=== PATIENT | female | born 1960 | race American Indian/Alaskan Native ===

== ENCOUNTER 2018-05-14 11:04 | Day surgery (SDC) | payer BC, OTHER ==
[~2018-05-14] VITALS: Ht 157.5 cm; Wt 74.4 kg
[~2018-05-14 11:04] MED LIST: ALBUTEROL SULF8.5 GM INH; ALLEGRA180 MG PO; ANTIVERT25 MG PO; ASPIRIN EC81 MG PO; CALCIUM500 MG PO; CLARITIN10 M2 PO; CRESTOR10 MG PO; DETROL LA4 MG PO; EPIPEN 2-P0.3 MG/0.3 IM; ESTRADIOL1 MG PO; FLONASE2 SPRAY NS; JANUVIA100 MG PO; LANTUS100 UNITS/ SUB-Q; LEVOTHYROXINE50 MCG PO; LISINOPRIL2.5 MG PO; MAG-OXIDE400 MG PO; METFORMIN HCL1000 MG PO; NAPROXEN500 MG PO; NEURONTIN100 MG PO; PREVACID30 MG PO; PV NEURO VITE1 EACH PO; VITAMIN D3400 UNI1 PO
--- NOTE | 2018-05-14 14:21 | NUR ---
05/14/18 1421 Ava Richards 1416-PATIENT ARRIVED TO PACU ON 2L NC O2 SAT 100% PATIENT REACTIVE TO VOICE DROWSY DENIES PAIN OR NAUSEA. ABDOMEN SOFT. LAYING LEFT LATERAL. GLUCOSE CHECK 89
--- NOTE | 2018-05-15 08:49 | OR ---
[facility] [address], [place] [address] Signed DATE OF OPERATION: 05/14/2018 SURGEON: Mahnaz Carlton MD PREOPERATIVE DIAGNOSES: 1. Episodic rectal bleeding. 2. History of sigmoid resection for diverticular disease in 2010. POSTOPERATIVE DIAGNOSES: 1. Scattered diverticula of remaining colon. No evidence of anastomotic abnormality including stricture. 2. No active proctitis or obvious hemorrhoidal changes. PROCEDURE: Total colonoscopy to cecum. ANESTHESIA: Intravenous sedation, fentanyl 100 mcg, Versed 5 mg. INDICATION: This 57-year-old [place] woman has complaints of rectal bleeding. She has last had bleeding in November. Blood filled the toilet bowl upon defecation. She had no pain with defecation. She has undergone sigmoid resection for diverticular disease by me in 2010. She has some evidence of episodic abdominal pain as well. She is admitted at this time to undergo colonoscopy to better characterize her problem, understanding the risks of bleeding, infection, and perforation. FINDINGS: The prep was excellent. Complete colonoscopy was undertaken of the cecum. There were few scattered diverticula in the remaining colon. The rectum was normal. The anastomosis was widely patent. There was no sign of active bleeding. No sign of proctitis or obvious hemorrhoidal changes. DESCRIPTION OF PROCEDURE: The patient was brought to the endoscopy suite and placed in lateral decubitus position given intravenous sedation to the point of slurred speech and nystagmus. Digital rectal examination was normal. An Olympus video colonoscope was passed in the rectum and manipulated throughout the colon ultimately intubating the cecum. The ileocecal valve and appendiceal orifice were Electronically Signed By: MAHNAZ CARLTON MD 05/15/18 0849 PATIENT NAME: LAYNE DIAZ OPERATIVE REPORT DATE OF : 60 REPORT #: [id number] PHYSICIAN: MAHNAZ CARLTON MD PCP: ZACH SOUZA MD REPORT IS CONFIDENTIAL AND NOT TO BE RELEASED WITHOUT AUTHORIZATION [facility] [address], [place] [address] Signed normal. Scope was withdrawn from that point. Examination throughout showed no sign of abnormality other than a few scattered diverticula throughout the colon. The coloproctostomy (anastomosis) was widely patent without sign of pathologic abnormality. The rectum was normal. Retroflexed view was undertaken showing no active bleeding or obvious colitis. No sign of significant hemorrhoidal change at this time. Scope was removed and the patient was taken to the recovery room in good condition. CONCLUDING DIAGNOSIS: Uncertain etiology of bleeding probably hemorrhoidal, now passed. Recommend high-fiber diet or Citrucel 1 tablespoon daily. She will call if bleeding recurs. MD BOBBY Stephens/HERNANDEZL /[id number] cc: Zach Souza MD Copies: ZACH SOUZA MD ~ Electronically Signed By: MAHNAZ CARLTON MD 05/15/18 0849 PATIENT NAME: LAYNE DIAZ OPERATIVE REPORT DATE OF : 60 REPORT #: [id number] PHYSICIAN: MAHNAZ CARLTON MD PCP: ZACH SOUZA MD REPORT IS CONFIDENTIAL AND NOT TO BE RELEASED WITHOUT AUTHORIZATION
== END 2018-05-14 15:05 | disposition home or self-care (01) ==
LOC: OPS 11:04 → DS 12:00 → OPS 15:05
PROVIDERS: Surgery
PROC: 0DJD8ZZ Inspection of Lower Intestinal Tract, Via Natural or Artificial Opening Endoscopic (ICD-10-PCS; principal; 2018-05-14 12:00)
DX: K62.5 Hemorrhage of anus and rectum (principal); K57.30 Diverticulosis of large intestine without perforation or abscess without bleeding; E11.9 Type 2 diabetes mellitus without complications; E03.9 Hypothyroidism, unspecified; J45.909 Unspecified asthma, uncomplicated; K21.9 Gastro-esophageal reflux disease without esophagitis; E66.3 Overweight; Z90.49 Acquired absence of other specified parts of digestive tract; Z88.8 Allergy status to other drugs, medicaments and biological substances; Z88.0 Allergy status to penicillin; Z88.5 Allergy status to narcotic agent; Z91.041 Radiographic dye allergy status; Z68.30 Body mass index [BMI] 30.0-30.9, adult
CPT/HCPCS: 99153; G0500; J2250; J3010; J7120

== ENCOUNTER 2020-12-31 07:35 | Day surgery (SDC) | payer BC, OTHER ==
[~2020-12-31] VITALS: Ht 157.5 cm; Wt 76.2 kg
--- NOTE | 2020-12-31 10:15 | NUR ---
12/31/20 1015 Barbra Crow 1012 PATIENT ARRIVES TO PACU RESTING WITH EYES CLOSED. ANSWERS QUESTIONS APPROPRIATELY WITH VERBAL STIMULI. RESP EVEN AND UNLABORED,OXYGEN OFF, ROOM AIR SATS >95%. DENIES PAIN OR NAUSEA.
--- NOTE | 2021-01-01 11:49 | OR ---
[facility] [address], [place] [address] Signed DATE OF OPERATION: 12/31/2020 SURGEON: Mahnaz Carlton MD PREOPERATIVE DIAGNOSES: 1. Abdominal bloating, fullness, longstanding gastroesophageal reflux history. 2. Diabetes mellitus. 3. History of diverticular disease, requiring resection. POSTOPERATIVE DIAGNOSES: 1. Upper endoscopy showing normal esophagus, mild gastritis, no sign of ulceration or neoplasm. No hiatal hernia. 2. Normal colon to cecum, widely patent colorectal anastomosis. PROCEDURES: 1. Esophagogastroduodenoscopy with biopsy. 2. Total colonoscopy to cecum with biopsy of cecum and rectum. ANESTHESIA: Intravenous sedation, fentanyl 150 mcg and Versed 5 mg. INDICATION: This 60-year-old woman is a patient of Dr. Ryan, [facility]. She is known to me from the past having undergone sigmoid resection for diverticular disease. She is seen recently with complaints of abdominal bloating and fullness and so on. She does not have typical biliary symptoms of epigastric right subcostal pain. Her blood sugars have been somewhat poorly controlled in recent times as well. Clinical suspicion remains high for possible biliary disease, a recent ct scan confirms gallstones. She has also had lower abdominal pain, suggestive of recurrent diverticular disease and upper abdominal pain in a bandlike configuration, which is uncertain etiology. Most dominantly, she has vague abdominal bloating and fullness. She is admitted at this time to undergo upper endoscopy and colonoscopy to better characterize the problem, I remain highly suspect biliary source for symptoms. FINDINGS: Upper endoscopy showed a normal esophagus. This flap valve was good. The stomach had mild inflammation, but not much and no ulceration. CLOtest was negative indicating no evidence of H. pylori. The duodenum was normal. Colonoscopy showed an adequate prep. Complete colonoscopy was undertaken of the cecum. Electronically Signed By: MAHNAZ CARLTON MD 01/01/21 1149 PATIENT NAME: LAYNE DIAZ OPERATIVE REPORT DATE OF : 60 REPORT #: [id number] PHYSICIAN: MAHNAZ CARLTON MD PCP: MIGDALIA RYAN MD REPORT IS CONFIDENTIAL AND NOT TO BE RELEASED WITHOUT AUTHORIZATION [facility] [address], [place] [address] Signed There were no gross findings of note. The anastomosis was widely patent. Biopsies were taken of the cecum and rectum to assess for occult inflammation. DESCRIPTION OF PROCEDURE: The patient was brought to the endoscopy suite, given topical hypopharyngeal lidocaine anesthetic spray. In the lateral decubitus position with full cardiopulmonary monitoring. A bite block was placed and she was given intravenous sedation to the point of slurred speech and nystagmus. The Olympus video upper endoscope was passed by hypopharynx, vocal cords appeared normal. Scope was easily passed in the esophagus throughout its length, it was entirely normal. Scope was passed to the stomach, which was insufflated with air, there was no evidence of fluid retention or other problem, there was no bile in the stomach, rugal folds were normal, pylorus was normal. Scope was passed through into the duodenum, which was normal; biopsies were taken of the 2nd bulbar portions to assess for celiac disease and other occult inflammation. The scope was withdrawn. A biopsy was then taken of the antrum for both ALBERTO and pathologic testing. Notably, there was a fine reticular appearance of mild chronic gastritis. Proximal evaluation on retroflexed view showed a reasonably good flap valve actually. The scope was withdrawn to the distal esophagus and biopsies were obtained there. The mucosa was normal. Scope was further withdrawn. There were no other findings. Plans were then made for colonoscopy. Additional sedation was given and digital rectal examination was performed, which was normal. An Olympus video colonoscope was passed in the rectum and manipulated throughout the colon. The prep was adequate, but not great by any means. There was no solid stool. Fair amount of irrigation was required. Scope was ultimately advanced to the cecum. The ileocecal valve and appendiceal orifice were normal. Scope was manipulated to allow for biopsy of the cecum. Withdrawal of scope showed no sign of abnormality throughout the entire colon. The anastomosis which was under site and configuration was widely patent. Biopsies were then taken of the rectum, but appeared normal. The scope was removed. The patient was taken to the recovery room in good condition. Notably, she did have internal hemorrhoidal changes. CONCLUDING DIAGNOSIS: No findings likely to account for her current symptoms. I strongly suspect a biliary source to her problem. A Ct scan has already confirmed gallstones. I have scheduled her for lap omega, possible open, this coming Sunday-- barring significant findings on this endoscopic evaluation. We Should continue with the opertive plan on that bais. PLAN: She has already been scheduled for lap omega, possible open procedure this coming Sunday and since there were no findings to account for her symptoms of upper abdominal pain, we will procedure with lap omega. Electronically Signed By: MAHNAZ CARLTON MD 01/01/21 1149 PATIENT NAME: LAYNE DIAZ OPERATIVE REPORT DATE OF : 60 REPORT #: [id number] PHYSICIAN: MAHNAZ CARLTON MD PCP: MIGDALIA RYAN MD REPORT IS CONFIDENTIAL AND NOT TO BE RELEASED WITHOUT AUTHORIZATION [facility] [address] [place] [address] Signed MD BOBBY Stephens/TOMER /[id number] cc: Migdalia Ryan MD Copies: MIGDALIA RYAN MD ~ Electronically Signed By: MAHNAZ CARLTON MD 01/01/21 1149 PATIENT NAME: LAYNE DIAZ OPERATIVE REPORT DATE OF : 60 REPORT #: [id number] PHYSICIAN: MAHNAZ CARLTON MD PCP: MIGDALIA RYAN MD REPORT IS CONFIDENTIAL AND NOT TO BE RELEASED WITHOUT AUTHORIZATION
--- NOTE | 2021-01-03 21:44 | PATH ---
[facility] [address] [place], [place] [address] Signed SPECIMEN(S): A DUODENAL BIOPSY SPECIMEN(S): B ANTRUM BIOPSY SPECIMEN(S): C ESOPHAGEAL BIOPSY SPECIMEN(S): D RECTUM SPECIMEN(S): E CECUM COLON BIOPSY SPECIMEN SOURCE: A. DUODENAL BIOPSY B. ANTRUM BIOPSY C. ESOPHAGEAL BIOPSY D. RECTUM E. CECUM COLON BIOPSY CLINICAL HISTORY: Colonoscopy/EGD. C/o N/V and chronic diarrhea. History of diverticular disease. DX: Mild gastritis. MICROSCOPIC DESCRIPTION: Histologic sections of all submitted blocks are examined by light microscopy. These findings, together with the gross examination, support the pathologic diagnosis. Regarding specimen B: Focal pancreatic acinar metaplasia is present, however no evidence of atrophic gastritis including atrophy, gland destruction, or full-thickeness lymphoplasmacytic infiltrate is seen. An H. pylori immunohistochemical stain (with appropriately staining controls) is negative for Helicobacter organisms. NAL:cml FINAL PATHOLOGIC DIAGNOSIS: A. Duodenum, biopsy: - Duodenal mucosa with mild Sun's gland hyperplasia. - Negative for increased intraepithelial lymphocytes or villous blunting. - Negative for dysplasia or malignancy. B. Antrum, biopsy: - Antral mucosa with chronic, inactive gastritis and focal pancreatic acinar metaplasia. - Negative for Helicobacter organisms (HE and IHC). - Negative for atrophy, dysplasia, or malignancy. C. Esophagus, biopsy: - Squamous mucosa with reactive changes and minimal chronic inflammation, consistent with reflux esophagitis. - Negative for intestinal metaplasia, dysplasia, or malignancy. PATIENT NAME: LAYNE DIAZ PATHOLOGY DATE OF : 60 REPORT #: [id number] PHYSICIAN: KENNETH DAHL PCP: MIGDALIA SINGH MD REPORT IS CONFIDENTIAL AND NOT TO BE RELEASED WITHOUT AUTHORIZATION [facility] [address], [place] [address] Signed D. Rectum, biopsy: - Rectal mucosa with no histopathologic abnormality. - Negative for active or chronic proctitis. - Negative for dysplasia or malignancy. E. Colon, cecum, biopsy: - Colonic mucosa with no histopathologic abnormality. - Negative for active or chronic proctitis. - Negative for dysplasia or malignancy. NAL:cml:C2NR GROSS DESCRIPTION: Five specimens are received in five containers, labeled "TM." A. The specimen, labeled "TM, 1," and designated on the requisition "duodenum," is received in formalin and consists of four li soft tissue fragments that measure 0.2-0.3 cm in greatest dimension. The specimen is entirely submitted in cassette (A1). B. The specimen, labeled "TM, 2," and designated on the requisition "antrum," is received in formalin and consists of two li soft tissue fragments that measure 0.3 cm in greatest dimension. The specimen is entirely submitted in cassette (B1). C. The specimen, labeled "TM, 3," and designated on the requisition "esophageal," is received in formalin and consists of two li soft tissue fragments that measure 0.3 cm in greatest dimension. The specimen is entirely submitted in cassette (C1). D. The specimen, labeled "TM, 4," and designated on the requisition "rectum," is received in formalin and consists of two li soft tissue fragments that measure 0.3 cm in greatest dimension. The specimen is entirely submitted in cassette (D1). E. The specimen, labeled "TM, 5," and designated on the requisition "cecum," is received in formalin and consists of three li soft tissue fragments that measure 0.2-0.3 cm in greatest dimension. The specimen is entirely submitted in cassette (E1). AT (under the direct supervision of a pathologist) The Gross Description was prepared using a voice recognition system. The report was reviewed for accuracy; however, sound-alike word errors, addition and/or deletions may occur. If there is any question about this report, please contact Client Services. ADDITIONAL NOTES: Immunohistochemical and/or in situ hybridization studies were performed on this case with the appropriate positive controls that react as expected. This test PATIENT NAME: LAYNE DIAZ PATHOLOGY DATE OF : 60 REPORT #: [id number] PHYSICIAN: KENNETH DAHL PCP: MIGDALIA SINGH MD REPORT IS CONFIDENTIAL AND NOT TO BE RELEASED WITHOUT AUTHORIZATION [address] [address] Signed was developed and its performance characteristics determined by [employer]. It has not been cleared or approved by the U.S. Food and Drug Administration. The FDA has determined that such clearance or approval is not necessary. This test is used for clinical purposes. It should not be regarded as investigational or for research. [employer] [facility] is certified under the Clinical Laboratory Improvement Amendments of 1988 (CLIA) as qualified to perform high complexity clinical laboratory testing. This assay has not been validated for specimens that have been decalcified. PERFORMING LABORATORY: The technical component was performed by [facility], [address] [place] [id number] (Improvement Nurse: Sumaya Kenyon MD; CLIA# [id number]). [facility], [address] [place] [id number] (CLIA# [id number]). Diagnostician: Adelina Smith MD Pathologist Electronically Signed 01/03/2021 Copies: ~ PATIENT NAME: LAYNE DIAZ PATHOLOGY DATE OF : 60 REPORT #: [id number] PHYSICIAN: KENNETH DAHL PCP: MIGDALIA SINGH MD REPORT IS CONFIDENTIAL AND NOT TO BE RELEASED WITHOUT AUTHORIZATION
== END 2020-12-31 11:25 | disposition home or self-care (01) ==
LOC: DS 07:35 → OPS 07:35 → DS 12:45
PROVIDERS: ATTEND Surgery
PROC: 0DBP8ZZ Excision of Rectum, Via Natural or Artificial Opening Endoscopic (ICD-10-PCS; 2020-12-31)
PROC: 0DB98ZZ Excision of Duodenum, Via Natural or Artificial Opening Endoscopic (ICD-10-PCS; principal; 2020-12-31 10:30)
PROC: 0DBH8ZZ Excision of Cecum, Via Natural or Artificial Opening Endoscopic (ICD-10-PCS; 2020-12-31 10:30)
DX: R14.0 Abdominal distension (gaseous) (principal); K29.50 Unspecified chronic gastritis without bleeding; K21.00 Gastro-esophageal reflux disease with esophagitis, without bleeding; K31.89 Other diseases of stomach and duodenum; E11.9 Type 2 diabetes mellitus without complications; K80.80 Other cholelithiasis without obstruction
CPT/HCPCS: 99153; G0500; J2250; J3010

== ENCOUNTER 2021-01-04 06:06 | Day surgery (SDC) | payer BC, OTHER ==
[~2021-01-04] VITALS: Ht 157.5 cm; Wt 76.0 kg
[2021-01-04] MEDS ORDERED: ETODOLAC200 MG PO (06:27)
[2021-01-04] MEDS ORDERED: ZESTRIL2.5 MG PO (06:27)
[2021-01-04] MEDS ORDERED: DETROL LA4 MG PO (06:28)
[2021-01-04] MEDS ORDERED: GLIPIZIDE10 MG PO (06:28)
[2021-01-04] MEDS ORDERED: OZEMPIC1 MG/0.71 (06:29)
[2021-01-04] MEDS ORDERED: NOVOLOG FL100 UNIT/1 SUB-Q (06:30)
[2021-01-04] MEDS ORDERED: MULTI VITAMIN1 EACH PO (06:31)
[2021-01-04] MEDS ORDERED: FIBER350 GM PO (06:31)
[2021-01-04] MEDS ORDERED: CALCIUM500 MG PO (06:31)
--- NOTE | 2021-01-04 07:44 | NUR ---
HEPARIN OVER RIDE SECONDARY TO PHARMACY TELLING NURSE WILL GET TO VERIFYING MEDICATION WHEN THEY CAN. PROVIDED TO OR NURSE, PATIENT HEADING BACK TO OR.
--- NOTE | 2021-01-04 10:34 | NUR ---
01/04/21 Nasreen4 Ava Richards 1023-PATIENT ARRIVED TO PACU ON 6L MASK RR EVEN ORAL AIRWAY IN PLACE NONAROUSABLE. SR. IVF INFUSING. 4 LAP SITES TO ABDOMEN CDI. 1033-GLUCOSE CHECKED 235. PATIENT REMAINS NONAROUSABLE RR EVEN 6L MASK ORAL AIRWAY REMAINS IN PLACE.
[2021-01-04] MEDS ORDERED: OXYCODON-ACETA1 EAC2 PO (10:53)
[2021-01-04] MEDS ORDERED: MAPAP500 MG PO (10:54)
--- NOTE | 2021-01-04 11:27 | NUR ---
PATIENT TO DAYSURGERY BEDSIDE REPORT PAVAN GUIDRY. PATIENT APPEARS DROWSY, REPORTS PAIN 5/10 ON PAIN SCALE SHARP. THEN PATINE FALLS BACK TO SLEEP. OXYGEN SATURATION 97% 1.5 L NC. ENCOURAGED DEEP BREATHING. PATIENT SKIN WARM AND DIAPHORETIC, BLOOD SUGAR 230, REMOVED BLANKETS, AFEBRILE. DRESSING TO ABDOMEN STERI STRIPS TO PUNCTURE SITES X4. PROVIDED SNACKS, DISCUSSED POC FOR PAIN CONTROL, CALL LIGHT WITHIN REACH.
--- NOTE | 2021-01-04 11:54 | NUR ---
C/O ABD PAIN /10. PERCOCET 7.5/325 (1) PO GIVEN. HELPED REPOSITION PT TO COMFORT.
--- NOTE | 2021-01-04 13:05 | NUR ---
PATIENT REPORTS PAIN MEDICATION NOT EFFECTIVE AND REQUESTING IV TORADOL AND SECOND PAIN PILL. CALL TO DR. CARLTON WHO VERBALIZED ONE TIME DOSE OF IV TORADOL 30 MG. PATIENT VERIFIED NOT ALLERGIC TO IV TORADOL. UPDATED PATIENT ON POC.
--- NOTE | 2021-01-04 13:25 | NUR ---
REPOSITIONED PATIENT IN BED, PATIENT IN POSITION. STERI STRIPS TO ABDOMEN HAVE NO NEW DRAINAGE. PATIENT RATING PAIN 7/10 ON PAIN SCALE. ADMINISTERED PAIN MEDICATION. REPORTS PAIN SHARP. PROVIDED JELLO AND ICE WATER. DIMMED LIGHTS. NO OTHER NEEDS AT THIS TIME.
--- NOTE | 2021-01-04 13:55 | NUR ---
PATIENT RESTING BACK IN BED WITH EYES CLOSED. VSS. PATIENT REPORTS PAIN IMPROVED. STERI STRIPS INTACT, WITH SMALL AMOUNT OF RED DRAINAGE. PATIENT REPORTS WILL GET UP IN A WHILE TO BATHROOM, WOULD LIKE TO REST MORE. CALL LIGHT WITH IN REACH. HAND-OFF OF CARE TO SHI GUIDRY.
--- NOTE | 2021-01-04 15:49 | NUR ---
HAS BEEN SLEEPING AFTER PAIN MEDICINE. AWOKE SWEATY. UP TO BR PT CHECKED GLUCOSE WITH PHONE 317. WANTS SOME APPLESAUCE. RATES PAIN 2/. SISTER CALLED WONT BE HERE TILL 430. LUZMARIA LINK FOR GLUCOSE.
--- NOTE | 2021-01-04 15:53 | NUR ---
REPORTS SOME NAUSEA BUT STATES IT WILL PASS.
--- NOTE | 2021-01-04 16:11 | NUR ---
PT BLOOD GLUCOSE CHECKED WITH GLUCOMETER 302. CALL TO DR CARLTON TO ALLOW PT TO MANAGE OWN BLOOD SUGER.
--- NOTE | 2021-01-05 12:44 | OR ---
[facility] [address], [place] [address] Signed DATE OF OPERATION: 01/04/2021 SURGEON: Mahnaz Carlton MD PREOPERATIVE DIAGNOSES: 1. Chronic calculous cholecystitis. 2. Diabetes mellitus. 3. Incisional hernia; history of sigmoid resection. POSTOPERATIVE DIAGNOSES: 1. Chronic calculous cholecystitis with normal intraoperative cholangiogram. 2. Multiple intraabdominal adhesions related to omentum. 3. Incarcerated incisional hernia with incarcerated omentum. PROCEDURES: 1. Laparoscopy with laparoscopic lysis of adhesions (complex prolonged). 2. Laparoscopic cholecystectomy with intraoperative cholangiogram. 3. Repair of incisional hernia (separate incision) without implantation of Prolene mesh. 4. Surgeon-directed fluoroscopy. ANESTHESIA: General endotracheal, Harry Joel, PATIENT PORTAL CONCIERGE and local 20 mL of 0.25% Marcaine with epinephrine. INDICATION: This 60-year-old [place] woman is well known to me from the past. She is currently a patient of Dr. Ryan, [facility]. The patient has undergone sigmoid resection by me a number of years ago for diverticular disease and other interventions including hernia repair by Dr. Garcia, hysterectomy, and other interventions. She has underlying hypothyroidism, diabetes mellitus, is overweight and has hypertension. In the past number of months, she has had vague abdominal pain, bloating, fullness, and not feeling well. A CT scan was performed in the direction of Dr. Ryan at [facility], which showed several gallstones, but also showed a hernia in the apex of the midline incision. Images on CT scan show colon or small bowel within it as well as some omentum. Clinically, the hernia defect is relatively large, probably 3 fingerbreadths, but is seems to be partially reducible. She additionally has right subcostal and posterior thoracic pains, particularly after fatty food ingestion and I believe that her gallstones are symptomatic. She has recently undergone colonoscopy and upper endoscopy by me showing no evidence of ulceration. No sign of diverticulitis, neoplasm, or other Electronically Signed By: MAHNAZ CARLTON MD 01/05/21 1244 PATIENT NAME: LAYNE DIAZ OPERATIVE REPORT DATE OF : 60 REPORT #: [id number] PHYSICIAN: MAHNAZ CARLTON MD PCP: MIGDALIA RYAN MD REPORT IS CONFIDENTIAL AND NOT TO BE RELEASED WITHOUT AUTHORIZATION [facility] [address], [place] [address] Signed problems. Under the circumstances of her multifocal complaints of abdominal pain and bloating and so forth, I have recommended cholecystectomy and if appropriate, concurrent incisional hernia repair. The risks of bleeding, infection, bile duct injury, need for open procedure, and of course failure of the repair were all reviewed with her. She understands and wished to proceed. FINDINGS: Hers was a complex case. Opening of the supraumbilical incision to allow for pneumoperitoneum was quite impossible as incarcerated omentum in the hernia defect would not allow it. On that basis entry to the abdomen was in the upper aspect. Considerable amount of intraabdominal adhesions were noted related to the omentum, which were taken down with great care and fair amount of time to allow for entry to the abdomen to allow for cholecystectomy itself. Cholecystectomy was performed safely. The gallbladder was definitely chronically inflamed. There were multiple small dark stones. Cholangiogram was normal. There was fatty infiltration of the liver, but no cirrhotic changes. As regards to the hernia, it was repaired through separate incision reducing the omental incarcerated hernia well and excising the hernia sac. There was no incarcerated hollow viscus. As there was spillage of bile during the course of cholecystectomy, mesh was deemed inadvisable to implant concurrently to the repair. The repair was accomplished with interrupted 0 Prolene sutures in a vertical mattress configuration. Care was taken to close an infraumbilical incision, which had been made (though ineffective) as well as the epigastric port site. The operation was rather prolonged, complicated, and difficult lasting from approximately 7:45 a.m. to 10:15 a.m. DESCRIPTION OF PROCEDURE: The patient was brought to the operating room, given a general endotracheal anesthetic. Preoperative antibiotic aztreonam was given. Sequential compression device stockings were used and heparin subcutaneously administered. Sequential compression device stockings were used as well. After satisfactory general endotracheal anesthesia, the abdomen was prepared with a chlorhexidine solution and draped sterilely. Palpation in the region of the umbilicus showed an incompletely reducible incisional hernia at the apex of the low midline incision just above the umbilicus. An incision was made directly over this, anticipating easy reduction of the hernia and entry point for abdominal pneumoperitoneum. Despite efforts to do so and despite the fascia dividing well, dense omental scarring to this area was noted and this was clearly not the area of Electronically Signed By: MAHNAZ CARLTON MD 01/05/21 1244 PATIENT NAME: LAYNE DIAZ OPERATIVE REPORT DATE OF : 60 REPORT #: [id number] PHYSICIAN: MAHNAZ CARLTON MD PCP: MIGDALIA RYAN MD REPORT IS CONFIDENTIAL AND NOT TO BE RELEASED WITHOUT AUTHORIZATION [address] [place], [place] [address] Signed entry to the abdomen despite various maneuvers to do so. An infraumbilical incision was made outside the area of the hernia itself, but it too was densely adhered by omental adhesions. An epigastric incision was made to the right of the ligamentum teres ultimately allowing for passage of a 5 mm trocar gently insinuated to allow for pneumoperitoneum. Leakage in the region of the previous interventions at the umbilicus were secured with traumatic towel clamps. The 10 mm angles laparoscope was changed out for a 5 mm scope allowing for intraabdominal inspection. There appeared to be considerable omental adhesions certainly in the region of the umbilicus, thus precluding safe entry to the abdomen through that site, but also in the upper abdomen and to the right side as well. A narrow window was identified on the right side for which a 5 mm port could be placed and Endo Luana used to carefully brought in the area of access to the abdominal cavity. Omental adhesions were taken down primarily with sharp dissection. Ultimately, adhesions in the region of the umbilicus were taken down enough that trocar could be changed for 10 mm one and the camera and laparoscope changed to 10 mm type. This allowed for additional dissection of omental adhesions in the region of the umbilicus. They were densely adherent and it is no wonder that entry through the site was not possible. Ultimately, a Mark cannula could be insinuated through this incisional site and the balloon inflated associated with the trocar allowing for replacement of the camera to that site. Additional 5 mm ports were placed in the right midclavicular area and further adhesiolysis ultimately allowed for a window exposing well the upper abdomen. A grasper was used to elevate the apex of the gallbladder cephalad and omental adhesions were taken down with blunt and sharp dissection. Lateral retraction of the infundibulum allowed for dissection of the triangle of Calot identifying well slightly enlarged pericholecystic lymph node and the cystic duct itself. The cystic duct was well identified and once it was, a clip applied across the gallbladder cystic duct junction. A transverse choledochotomy was made and the cystic duct allowing for egress of clear yellow bile. Using the Zheng-type cholangiocatheter, intraoperative cholangiography was undertaken showing free flow of contrast in the biliary tree with prompt emptying into the duodenum. There was no evidence of filling defect or abnormality in any way. The cystic duct was triply clamped and divided. The gallbladder was dissected free in a retrograde fashion using electrocautery. A small rent was made in the gallbladder allowing for egress of clear yellow bile. This was suctioned free. The gallbladder was extracted through the epigastric port with an endobag, opened on the back table and found to have several small black 4 mm gallstones. The mucosa had chronic inflammatory change with no neoplasm. Irrigation was undertaken of the upper abdomen. When excess irrigation fluid was suctioned free, the subhepatic space once again examined closely showing no sign of bile leak, bleeding, or other problem. Electronically Signed By: MAHNAZ CARLTON MD 01/05/21 1244 PATIENT NAME: LAYNE DIAZ OPERATIVE REPORT DATE OF : 60 REPORT #: [id number] PHYSICIAN: MAHNAZ CARLTON MD PCP: MIGDALIA RYAN MD REPORT IS CONFIDENTIAL AND NOT TO BE RELEASED WITHOUT AUTHORIZATION [address] [address] Signed Replacement of the laparoscope to the epigastric port allowed for better inspection in the region of the incarcerated incisional hernia at the umbilicus. There is no sign of hollow viscus within this area. The trocars were then removed under direct visualization showing no sign of bleeding or other problems. Attention was turned towards the incisional hernia. The fascial edges of the incisional hernia were elevated and using blunt electrocautery dissection, the omental adhesions and so forth were freed and replaced back into the abdominal cavity. The hernia sac associated with this defect was excised. Implantation of Prolene mesh was deemed inadvisable under the circumstances of bile contamination through the abdomen. The defect was at least 6 cm in size. The fascia was reapproximated with interrupted 0 Prolene suture and interrupted vertical mattress configuration. The infraumbilical fascial defect was similarly reapproximated. The epigastric defect was also secured this way. 20 mL of 0.25% Marcaine with epinephrine was injected locally. The skin was closed with running subcuticular 3-0 Vicryl. Steri-Strips were applied and an Acticoat dressing applied to the umbilical area. The incisional hernia was repaired through separate incision from the operation itself. The operation overall was complicated, prolonged, and difficult lasting 4 times longer than would be expected normally. It was accomplished safely however. Blood loss is certainly less than 25 mL in aggregate. MD BOBBY Stephens/TOMER /[id number] cc: Migdalia Ryan MD Copies: MIGDALIA RYAN MD ~ Electronically Signed By: MAHNAZ CARLTON MD 01/05/21 1244 PATIENT NAME: LAYNE DIAZ OPERATIVE REPORT DATE OF : 60 REPORT #: [id number] PHYSICIAN: MAHNAZ CARLTON MD PCP: MIGDALIA RYAN MD REPORT IS CONFIDENTIAL AND NOT TO BE RELEASED WITHOUT AUTHORIZATION
--- NOTE | 2021-01-06 13:22 | PATH ---
[facility] [address] [place], [place] [address] Signed SPECIMEN(S): A GALLBLADDER AND STONES SPECIMEN(S): B HERNIA SAC SPECIMEN SOURCE: A. GALLBLADDER AND STONES B. HERNIA SAC CLINICAL HISTORY: Laparoscopic cholecystectomy. Biliary disease. FINAL PATHOLOGIC DIAGNOSIS: A. Gallbladder, cholecystectomy: - Chronic cholecystitis with cholesterolosis. - Cholelithiasis. B. Hernia sac, excision: - Fragments of fibromembranous tissue with attached fibroadipose tissue, consistent with hernia sac. NAL:cml:C2NR MICROSCOPIC EXAMINATION: Histologic sections of all submitted blocks are examined by light microscopy. These findings, together with the gross examination, support the pathologic diagnosis. GROSS DESCRIPTION: Two specimens are received in two containers, labeled "TM." A. The specimen, labeled "TM, gallbladder," is received in formalin and consists of Specimen: Previously opened gallbladder. Dimensions: 7 cm in length and 4.2 cm in inner circumference. Serosa: Violaceous and smooth. Cystic Duct: Unobstructed. Calculi: Several black gallstones within the container that measure 0.1-0.2 cm in greatest dimension. Mucosa: Watson-li and velvety. Wall thickness: 0.3 cm. Lymph node: No pericystic lymph nodes are grossly identified. Additional: None. Dye Beck Reel Operator sections are submitted in cassette (A1). B. The specimen, labeled "TM, hernia sac," is received in formalin and consists of two irregular shaped, fibromembranous tissues with attached adipose PATIENT NAME: LAYNE DIAZ PATHOLOGY DATE OF : 60 REPORT #: [id number] PHYSICIAN: KENNETH DAHL PCP: MIGDALIA SINGH MD REPORT IS CONFIDENTIAL AND NOT TO BE RELEASED WITHOUT AUTHORIZATION [facility] [address] [place] [address] Signed tissue that aggregate measures 3.7 x 4.2 x 1.2 cm. Specimen is pink-li, focally congested. Sectioning through the specimen is grossly unremarkable. Dye Beck Reel Operator sections are submitted in cassette (B1). JS (under the direct supervision of a pathologist) The Gross Description was prepared using a voice recognition system. The report was reviewed for accuracy; however, sound-alike word errors, addition and/or deletions may occur. If there is any question about this report, please contact Client Services. PERFORMING LABORATORY: The technical component was performed by [id number] [address] (Gelatin Powder Mixer: Sumaya Kenyon MD; CLIA# [id number]). Professional interpretation was performed by [facility], [address] [address] (CLIA# [id number]). Diagnostician: Adelina Smith MD Pathologist Electronically Signed 01/06/2021 Copies: ~ PATIENT NAME: LAYNE DIAZ PATHOLOGY DATE OF : 60 REPORT #: [id number] PHYSICIAN: KENNETH DAHL PCP: MIGDALIA SINGH MD REPORT IS CONFIDENTIAL AND NOT TO BE RELEASED WITHOUT AUTHORIZATION
== END 2021-01-04 16:50 | disposition home or self-care (01) ==
LOC: DS 06:06
PROVIDERS: ATTEND Surgery
PROC: BF12YZZ Fluoroscopy of Gallbladder using Other Contrast (ICD-10-PCS; 2021-01-04)
PROC: 0WQF0ZZ Repair Abdominal Wall, Open Approach (ICD-10-PCS; 2021-01-04)
PROC: 0FT44ZZ Resection of Gallbladder, Percutaneous Endoscopic Approach (ICD-10-PCS; principal; 2021-01-04 06:45)
DX: K80.10 Calculus of gallbladder with chronic cholecystitis without obstruction (principal); K43.0 Incisional hernia with obstruction, without gangrene; K57.30 Diverticulosis of large intestine without perforation or abscess without bleeding; E11.9 Type 2 diabetes mellitus without complications; I10 Essential (primary) hypertension; J45.909 Unspecified asthma, uncomplicated; E03.9 Hypothyroidism, unspecified; E66.3 Overweight; R32 Unspecified urinary incontinence; K66.0 Peritoneal adhesions (postprocedural) (postinfection); K76.0 Fatty (change of) liver, not elsewhere classified; Z88.0 Allergy status to penicillin; Z88.6 Allergy status to analgesic agent; Z88.8 Allergy status to other drugs, medicaments and biological substances; Z90.49 Acquired absence of other specified parts of digestive tract; Z79.4 Long term (current) use of insulin; Z90.711 Acquired absence of uterus with remaining cervical stump
CPT/HCPCS: 00790; 74300; J1100; J1200; J1644; J1885; J2001; J2250; J2405; J2704; J3010; J3490; J7121; Q9967

== ENCOUNTER 2021-04-09 19:48 | Emergency (ER) | payer BC, OTHER ==
[~2021-04-09] VITALS: Ht 157.5 cm; Wt 75.7 kg
[~2021-04-09 19:48] MED LIST changes: +ETODOLAC200 MG PO; +FIBER350 GM PO; +GLIPIZIDE10 MG PO; +MAPAP500 MG PO; +MULTI VITAMIN1 EACH PO; +NOVOLOG FL100 UNIT/1 SUB-Q; +OXYCODON-ACETA1 EAC2 PO; +OZEMPIC1 MG/0.71; +ZESTRIL2.5 MG PO
--- OUTSIDE RECORDS SUMMARY | 2021-04-09 21:04 | XMS ---
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 [facility] has no Care Guidelines for this patient. Brenda VISIT COUNT (12 MO.) 1 [facility] Ac[facility] TOTAL 1 NOTE: Visits indicate total known visits. ED/C VISIT TRACKING (12 MO.) 04/09/2021 19:48 [facility] [place] TYPE: Emergency COMPLAINT: - DIFFICULTY BREATHING INPATIENT VISIT TRACKING (12 MO.) No inpatient visits to display in this time frame [email or web address]
--- NOTE | 2021-04-10 18:57 | EKG ---
[facility] [address] [place] [address] Signed Sinus rhythm with marked sinus arrhythmia Otherwise normal ECG When compared with ECG of 03-JAN-2021 10:24, No significant change was found Confirmed by LINDEN SHABAZZ MD ([id number]) on 04/10/2021 6:56:49 PM Electronically Signed By: LINDEN SHABAZZ MD 04/10/21 1857 PATIENT NAME: LAYNE DIAZ Electrocardiogram DATE OF : 60 PHYSICIAN: LINDEN SHABAZZ MD REPORT #: [id number] REPORT IS CONFIDENTIAL AND NOT TO BE RELEASED WITHOUT AUTHORIZATION
== END 2021-04-09 21:55 | disposition home or self-care (01) ==
LOC: ED 19:48
DX: U07.1 COVID-19 (principal); J45.909 Unspecified asthma, uncomplicated; E03.9 Hypothyroidism, unspecified; Z88.0 Allergy status to penicillin; Z88.5 Allergy status to narcotic agent; Z91.013 Allergy to seafood; Z88.1 Allergy status to other antibiotic agents; Z88.6 Allergy status to analgesic agent; Z88.8 Allergy status to other drugs, medicaments and biological substances; Z79.4 Long term (current) use of insulin; Z79.899 Other long term (current) drug therapy
CPT/HCPCS: 71045; 80053; 85025; 93005; 93010; 99285-25

== ENCOUNTER 2021-07-25 12:12 | Emergency (ER) | payer BC, OTHER ==
[~2021-07-25] VITALS: Ht 157.5 cm; Wt 75.8 kg
--- OUTSIDE RECORDS SUMMARY | 2021-07-25 12:14 | XMS ---
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 Care History Medical/Surgical 04/11/2021 [facility] - PATIENT IS [facility] ELIGIBLE, \T\middot;\T\nbsp; PLEASE REFER PATIENT TO [facility] FOR NON EMERGENT MEDICAL NEEDS. \T\middot;\T\nbsp; [facility] CAN SEE PATIENTS SAME DAY FOR APTS IF PATIENT CALLS FIRST THING IN THE MORNING. E.D. VISIT COUNT (12 MO.) 2 [facility] TOTAL 2 NOTE: Visits indicate total known visits. 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
--- NOTE | 2021-07-28 11:25 | EKG ---
[facility] [address] [place], [place] [address] Signed Normal sinus rhythm Normal ECG When compared with ECG of 09-APR-2021 20:10, No significant change was found Confirmed by LINDEN SHABAZZ MD ([id number]) on 07/28/2021 11:24:48 AM Electronically Signed By: LINDEN SHABAZZ MD 07/28/21 1125 PATIENT NAME: LAYNE DIAZ Electrocardiogram DATE OF : 60 PHYSICIAN: LINDEN SHABAZZ MD REPORT #: [id number] REPORT IS CONFIDENTIAL AND NOT TO BE RELEASED WITHOUT AUTHORIZATION
== END 2021-07-25 14:43 | disposition home or self-care (01) ==
LOC: ED 12:12
DX: R07.89 Other chest pain (principal); E11.9 Type 2 diabetes mellitus without complications; E03.9 Hypothyroidism, unspecified; J45.909 Unspecified asthma, uncomplicated; Z88.0 Allergy status to penicillin; Z88.1 Allergy status to other antibiotic agents; Z91.013 Allergy to seafood; Z88.5 Allergy status to narcotic agent; Z88.8 Allergy status to other drugs, medicaments and biological substances; Z79.890 Hormone replacement therapy; Z79.84 Long term (current) use of oral hypoglycemic drugs; Z79.4 Long term (current) use of insulin; Z79.899 Other long term (current) drug therapy; Z79.51 Long term (current) use of inhaled steroids
CPT/HCPCS: 71045; 80053; 83735; 84484; 85025; 93005; 93010; 96374; 99285-25; J1885

== ENCOUNTER 2022-02-17 01:44 | Inpatient (IN) | payer BC, OTHER ==
[~2022-02-17] VITALS: Ht 157.5 cm; Wt 83.1 kg
[~2022-02-17 01:44] MED LIST changes: +FIBER0.52 GM PO; -FIBER350 GM PO; -FLONASE2 SPRAY NS; +FLUTICASONE PRO16 GM NAS
[2022-02-17] MEDS ORDERED: CLARITIN10 MG PO (02:09)
[2022-02-17] MEDS ORDERED: TRULICITY3 MG/0.5 M SQ (02:11)
[2022-02-17] MEDS ORDERED: DICLOFENAC SOD100 G1 TOP (02:11)
[2022-02-17] MEDS ORDERED: MECLIZINE HCL25 MG PO (02:14)
[2022-02-17] MEDS ORDERED: LOMAIRA8 MG (02:15)
--- NOTE | 2022-02-17 05:14 | NUR ---
report received from Penny GUIDRY
--- NOTE | 2022-02-17 06:08 | NUR ---
0545 - PT ARRIVED FROM ED VIA STRETCHER, COOPERATIVE WITH ADMISSION QUESTIONS, AWARE OF NPO STATUS. ANXIOUS, REASSURED, IVF INFUSING . ORAL CARE DONE BY SELF.
--- NOTE | 2022-02-17 06:35 | NUR ---
PT C/O ABD PAIN. "I HAVE A HIGH TOLERANCE TO PAIN, THIS DOES NOT DO ANYTHING FOR ME", I NEED AN ANTIEMETIC WITH THE DILAUDID, TOO. PT MEDICATED WITH DILAUDID 0.5MG IV PER 5/10 ABD PAIN, PT RECEIVED ZOFRAN IN ED. PT INSTRUCTED ON TIMES WHEN MEDS ARE DUE. REASSURED. IVF INFUSING W/O PROBLEMS, NO C/O ADVERSE REACTION TO ABX. CALL LIGHT AT HANDS REACH, DOES OWN ORAL CARE, FAMILY AT BEDSIDE
--- NOTE | 2022-02-17 06:49 | NUR ---
DR VILLA HERE, NEW VERBAL ORDERS RECEIVED TO INCREAE DILAUDID 0.5MG TO 1.5MG Q2H PRN ABD PAIN. AND ACCUCHECKS Q6H SHE IS NPO, DR CONLEY CONSULT TO MANAGE DM
--- NOTE | 2022-02-17 06:51 | NUR ---
DR VILLA AT RN STATION, VERBAL ORDER READ BACK FOR HOSPITALIST CONSULT FOR DIABETES MANAGEMENT pt IS CURRENTLY DIABETIC AND NPO.
--- NOTE | 2022-02-17 09:08 | NUR ---
PT REPORTING NAUSEA AND VOMITING X 1 STATES VOMIT WAS BROWN IN COLOR. REPORTS PAIN 4/10. REQUESTING PAIN MEDICATION.
--- NOTE | 2022-02-17 10:27 | NUR ---
PT CONTINUES TO VOMIT DESPITE ZOFRAN. PHENERGAN ADMINISTERED. IV ABX RUNNING. CALL LIGHT WITHIN REACH.
[2022-02-17] MEDS ORDERED: ETODOLAC400 MG PO (11:05)
[2022-02-17] MEDS ORDERED: GLIPIZIDE XL10 MG PO (11:07)
[2022-02-17] MEDS ORDERED: LANTUS SOL100 UNIT/1 SUB-Q (11:10)
[2022-02-17] MEDS ORDERED: PROAIR HFA8.5 GM INH (11:12)
--- NOTE | 2022-02-17 12:05 | NUR ---
NG TUBE PLACEMENT ATTEMPTED X1 TO RIGHT NOSTRIL. SECOND ATTEMPT BY CHARGE NURSE. BOTH UNSUCCESSFUL. OR NOTIFIED.
--- NOTE | 2022-02-17 14:47 | NUR ---
02/17/22 1446 Barbra Crow 1441 PATIENT ARRIVES TO PACU UNRESPONSIVE TO PAIN. ORAL AIRWAY IN PLACE. RESP EVEN AND UNLABORED, MASK AT 6 LITERS. NG LEFT NOSTRIL IN PLACE, ATTACHED TO LOW SUCTION.
--- NOTE | 2022-02-17 15:38 | NUR ---
PT RETURNED FROM SURGERY. FOLLOWS COMMANDS BUT SLEEPY. NG TUBE AT LOW INTERMITTENT SUCTION. IV FLUIDS RUNNING AT 125. NEW AMBROSE CATHETERY IN PLACE. INCISION SITE CDI. PT DENIES PAIN ATT. CALL LIGHT WITHIN REACH.
[2022-02-17] MEDS ORDERED: VITAMIN B-121000 MCG PO (16:40)
[2022-02-17] MEDS ORDERED: VITAMIN E400 UNI1 PO (16:40)
--- NOTE | 2022-02-17 16:40 | NUR ---
MED REC COMPLETE
--- NOTE | 2022-02-17 16:41 | NUR ---
VS TAKEN. PT AWAKE AND ALERT. NG TUBE TO SUCTION. IV FLUIDS RUNNING. CALL LIGHT WITHIN REACH.
--- NOTE | 2022-02-17 17:28 | NUR ---
VS WNL. IV FLUIDS RUNNING. PT A/O, RESPIRATIONS EVEN AND REGULAR. CALL LIGHT WITHIN REACH.
--- NOTE | 2022-02-17 18:32 | NUR ---
TO PT ROOM FOR VS. VS WNL. IV FLUIDS RUNNING. NG TUBE TO SUCTION WITH NO OUTPUT. VISITOR AT BEDSIDE. CALL LIGHT WITHIN REACH. RATES PAIN 0/10 ATT.
--- NOTE | 2022-02-17 19:09 | NUR ---
CALLED DR VILLA REGARDING NO OUTPUT FROM NG TUBE. GAVE OK TO DO XRAY FOR PLACEMENT VERIFICATION AND THROAT LOZENGES.
--- NOTE | 2022-02-17 19:52 | NUR ---
At approximately 1930, patient alerted this nurse that she wanted NG tube removed. This nurse explained that Dr. Garcia wanted NG tube to stay in order to rest bowels. Dr. Garcia notified. 1mg IV ativan q4hr PRN ordered. Upon retreiving ativan at approximately 1945 and re-entering patient room, patient refused ativan. Patient stated that if this nurse did not pull NG tube, she would, and then leave AMA. This nurse notified charge nurse Sobeida of patient's behavior. NG tube pulled by this nurse. NG tubing intact. Removed without complication. Dr. Garcia notified at approximately 1950. Dr. Garcia did not give any new order at that time.
--- NOTE | 2022-02-17 19:55 | NUR ---
PROVIDED PT WITH MORE ORAL SWABS, NO FURTHER NEEDS AT THIS TIME
--- NOTE | 2022-02-17 23:09 | NUR ---
Patient sleeping in bed. Call light within reach.
--- NOTE | 2022-02-18 01:45 | NUR ---
Patient resting in bed. Denies pain. Denies nausea. Claims to feel hot. Oral temp of 99.0F. Adequate amount of ingram output noted. Vitals stable. No drainage noted on abdominal dressing. Patient has remained in bed. Call light within reach.
--- NOTE | 2022-02-18 04:07 | NUR ---
After NG tube was removed, patient had uneventful shift. Pt compliant with treatments and attitude is much more cooperative. Fully alert and oriented. Calls appropriately. On RA. Lungs sounds clear bilat. Bowel sounds active. Patient claims to be passing flatus. Denies nausea. No BM on shift. Delcid catheter remains in place. Adequate output. Remains NPO. Infusing maintanence fluid at rate of 125. Has remained in bed. CPOX in use.
--- NOTE | 2022-02-18 05:39 | NUR ---
Patient up to chair w/SBA. Minimal pain with positioning in chair. Call light within reach.
--- NOTE | 2022-02-18 08:11 | NUR ---
PATIENT LYING IN BED, DID NOT WANT TO GET UP. AM CARE COMPLETED AND CALL LIGHT IN REACH.
--- NOTE | 2022-02-18 08:14 | OR ---
[facility] [address] [place], [place] [address] Signed DATE OF OPERATION: 02/17/2022 SURGEON: Renny Villa MD PREOPERATIVE DIAGNOSIS: Recurrent supraumbilical incarcerated incisional hernia (3 cm). POSTOPERATIVE DIAGNOSIS: Recurrent supraumbilical incarcerated incisional hernia (3 cm). PROCEDURE: Primary repair of recurrent supraumbilical incarcerated incisional hernia. ESTIMATED BLOOD LOSS: None. INDICATIONS: Andrei is a 61-year-old diabetic female, who had a previous periumbilical midline incision for a sigmoid resection regarding her diverticular disease. She has also had a Pfannenstiel incision for hysterectomy. Last summer, she underwent a combination of a laparoscopic lysis of adhesions and cholecystectomy along with primary closure of her periumbilical incisional hernia with Dr. Romero. 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 Her sister told me that Andrei was aware that she had a recurrent supraumbilical incisional hernia. Two or three days ago while lifting hay, she felt pain and swelling in that area. She then developed nausea and vomiting. She came to the emergency room for evaluation. I was called at about 4 a.m. this morning. White count was normal. CT scan showed the fascial defect around 2.6 cm. There contained a knuckle of small bowel representing a Oscar's hernia. We gave her Levaquin and Flagyl and admitted her overnight. They were able to pass the NG tube this morning on our medical floor. She had vomited this morning about 1300 mL of additional fluid. I met with Andrei this morning and I reviewed the above findings with her as well as her previous surgical records. I explained to Andrei that our goal is to get her out of trouble today and not necessary to do a large incisional hernia repair with mesh. We also were concerned that the bowel may or may not be viable. We had discussed the expected intraop and postop course. There is risk to the surgery including, but not limited to bleeding, infection, scarring, change in contour of the skin, damage to bowel, anastomotic leak, recurrent incisional hernias along with chronic pain. She had expressed understanding and wished to proceed. PROCEDURE NOTE: Electronically Signed By: RENNY VILLA MD 02/18/22 0814 PATIENT NAME: ANDREI DIAZ OPERATIVE REPORT DATE OF : 60 REPORT #: [id number] PHYSICIAN: RENNY VILLA MD PCP: MIGDALIA SINGH MD REPORT IS CONFIDENTIAL AND NOT TO BE RELEASED WITHOUT AUTHORIZATION [facility] [address] [place] [id number] Signed Andrei was brought down to our preop area. After answering her questions once again, we took her into the operating room and placed her in the supine position. She was given general endotracheal tube anesthesia. She was on her preoperative antibiotics along with Lovenox. SCDs were in place. A Delcid catheter was inserted with return of clear yellow urine. She was prepped and draped in the usual sterile fashion. We really could not feel an obvious fascial defect due to her body habitus. We utilized her previous periumbilical incision and carried that down through the tissue bluntly with the cautery. We opened up the hernia sac and we found that the small bowel had been reduced but it appeared viable. We excised the entire hernia sac. Realized just a few adhesions on the left side. We then closed the defect transversely with interrupted #1 Prolene [id number]-kaltr sutures. Injected local anesthetic into the abdominal wall. The wound was irrigated and suctioned out until clear. We brought the subcutaneous tissue together with interrupted 2-0 PDS sutures. The dermis was brought together with interrupted 3-0 subcuticular Monocryl sutures. The stitches were reapproximated with kevon. Dry gauze and tape were then applied. We were able to place the NG tube during the surgery while she was asleep. Of course, I could not reach the stomach through that small hole. We left the Delcid catheter in place. She was awakened from her anesthesia, extubated in the OR, and taken to recovery room in stable condition. Renny Villa MD ALB/MODL /[id number] cc: MD Migdalia Childress MD Copies: RENNY VILLA MD, JAMES MD ~ Electronically Signed By: RENNY VILLA MD 02/18/22 0814 PATIENT NAME: ANDREI DIAZ OPERATIVE REPORT DATE OF : 60 REPORT #: [id number] PHYSICIAN: RENNY VILLA MD PCP: MIGDALIA SINGH MD REPORT IS CONFIDENTIAL AND NOT TO BE RELEASED WITHOUT AUTHORIZATION
--- NOTE | 2022-02-18 08:14 | CONS ---
[facility] [address] [place], [place] [address] Signed DATE OF CONSULTATION: 02/17/2022 CHIEF COMPLAINT: Periumbilical abdominal pain with nausea and vomiting. 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 She has to lift the hay and so forth. She had been through multiple previous abdominal surgeries. Last summer she went through a transverse right subcostal incision for an open cholecystectomy as well as a periumbilical midline incision with Dr. Romero for repair of incisional hernia. She has had a previous periumbilical incision for her diverticulitis and sigmoid resection years ago. Dr. Romero generally uses Prolene mesh in the retroperitoneal space. She thinks the last two days or so she has been having pain and swelling just above the umbilicus. She was having nausea, vomiting, and dehydration. She came to emergency room for evaluation last night. White count was normal. The CT scan showed a 26 mm hernia just above the umbilicus with incarcerated small bowel representing the transition point. Her stomach was completely full of fluid and she vomited up about 1300 mL earlier this morning. I had talked to the ER doctor last night about placing an NG tube, but he did not feel strongly in that regard. We are going to go ahead and place that now. She does have multiple allergies. Consequently, she received Levaquin and Flagyl last night. She has been hydrated as well. We have consulted our Internal Medicine Service, but our hospitalist is extremely busy currently. I have been busy this morning operating and was coming around to Andrei at this time. PAST MEDICAL HISTORY: Czt-yxgztkv-yiszbanwx diabetes, hypothyroidism, asthma, chronic back and hip pain, diverticulitis, multiple hernias including a left femoral hernia and a periumbilical incisional hernia as well as endometriosis. PAST SURGICAL HISTORY: Includes an open cholecystectomy, sigmoid resection for diverticular disease, left femoral hernia repair per myself, hysterectomy, sinus surgery, left knee surgery L5 and periumbilical incisional hernia with Prolene mesh last year with Dr. Romero. SOCIAL HISTORY: She does not smoke. She has a drink once in a while. She is single and has no children. She does have around 30 horses that she takes care of. Her sister is Danna Hutchins at [phone]. Migdalia Ryan is her primary care provider. FAMILY HISTORY: None. Electronically Signed By: RENNY VILLA MD 02/18/22 0814 PATIENT NAME: ANDREI DIAZ CONSULTATION DATE OF : 60 REPORT #: [id number] PHYSICIAN: RENNY VILLA MD PCP: MIGDALIA RYNA MD REPORT IS CONFIDENTIAL AND NOT TO BE RELEASED WITHOUT AUTHORIZATION [address] [address] Signed REVIEW OF SYSTEMS: She had 10 systems reviewed and she told me about her hernia surgeries. ALLERGIES: 1. Talwin. 2. Penicillin. 3. Cephalosporin. 4. Cefuroxime. 5. Metformin. 6. Rosuvastatin. 7. Morphine. 8. Ibuprofen. MEDICATIONS: 1. Tylenol. 2. Levothyroxine 50 mcg p.o. daily. 3. Estradiol. 4. Albuterol. 5. Fluticasone. 6. Prevacid. 7. Vitamin D. 8. Multivitamin. 9. Magnesium oxide. 10. Epinephrine . 11. Gabapentin. 12. Insulin. 13. Lisinopril. 14. Etodolac. 15. Detrol LA. 16. Glipizide . 17. Calcium. 18. Claritin. 19. Diclofenac. 20. Trulicity. 21. Meclizine. 22. Phentermine. PHYSICAL EXAMINATION: VITAL SIGNS: Blood pressure 131/64, heart rate 80, respiratory rate 18, temperature is 97.6 degrees, she is 96% on room air. She is 5 feet 2 inches at 83 kg. GENERAL: Andrei is a 61-year-old female, lying supine in her hospital bed. She is alert, awake, and interactive. One can see that she has some pain around the umbilicus. LUNGS: Clear to auscultation bilaterally. HEART: Regular rate and rhythm without murmurs. Electronically Signed By: RENNY VILLA MD 02/18/2214 PATIENT NAME: ANDREI DIAZ CONSULTATION DATE OF : 60 REPORT #: [id number] PHYSICIAN: RENNY VILLA MD PCP: MIGDALIA RYAN MD REPORT IS CONFIDENTIAL AND NOT TO BE RELEASED WITHOUT AUTHORIZATION [address] [address] Signed ABDOMEN: Generally soft and flat, but I can feel a tender lump just above the umbilicus. No change in skin color. LABORATORY DATA: Her white blood cell count is 9.9, hemoglobin 14, neutrophils 55. Blood sugar is 165. Electrolytes are unremarkable. COVID negative. Blood sugar was 193 this morning. Liver function tests are negative. Albumin is 3.4, lipase negative at 70. RADIOGRAPHIC STUDIES: CT scan of the abdomen and pelvis is reviewed and she can easily see the hernia just above the umbilicus containing small bowel. It measures out about 26 mm. ASSESSMENT AND PLAN: Andrei is a 61-year-old female with incarcerated recurrent supraumbilical incisional hernia. She has been admitted, hydrated and given IV antibiotics. I have reviewed with her the current findings in detail. She has had multiple surgeries and she is very aware of this whole process. There is risk including, but not limited to bleeding, infection, scarring, change in contour of the skin, damage to bowel, possible need for bowel resection with anastomotic leak, recurrent incisional hernias, chronic pain and other unforeseen comorbidities. She has expressed understanding and would like to proceed with surgery. Renny Villa MD ALB/MODL /[id number] cc: MD Migdalia Childress MD Copies: RENNY VILLA MD, JAMES MD ~ Electronically Signed By: RENNY VILLA MD 02/18/22 0814 PATIENT NAME: ANDREI DIAZ CONSULTATION DATE OF : 60 REPORT #: [id number] PHYSICIAN: RENNY VILLA MD PCP: MIGDALIA RYAN MD REPORT IS CONFIDENTIAL AND NOT TO BE RELEASED WITHOUT AUTHORIZATION
--- NOTE | 2022-02-18 08:15 | NUR ---
TO PT ROOM FOR MORNING ASSESSMENT AND MEDICATION ADMINISTRATION. PT A/O, REQUESTING AMBROSE CATHETER TO BE REMOVED. PT AMBULATED BEFORE SHIFT AND SAT IN CHAIR. IV ABX RUNNING. CALL LIGHT WITHIN REACH. C/O GORDON 11/15 GIVEN DILAUDID.
--- NOTE | 2022-02-18 09:40 | NUR ---
AMBRSOE CATHETER REMOVED. PT SITTING UP IN BED SIPPING WATER AND JELLO. ENCOURAGED AMBULATION TODAY. CALL LIGHT WITHIN REACH.
--- NOTE | 2022-02-18 10:08 | NUR ---
PATIENT IN BED, REFUSING TO GET UP, AMBROSE EMPTIED, VITALS AND I/O'S COMPLETED. NO OTHER NEEDS AT THIS TIME. CALL LIGHT WITHIN REACH.
--- NOTE | 2022-02-18 10:50 | NUR ---
TORADOL GIVEN FOR GORDON AND ABDOMINAL PAIN. ENCOURAGED AMBULATION. PT REFUSES ATT. IV FLUIDS RUNNING. CALL LIGHT WITHIN REACH.
--- NOTE | 2022-02-18 12:25 | NUR ---
PT A/O, RESPIRATIONS EVEN AND REGULAR. IV FLUIDS RUNNING. INSULIN GIVEN. PT NOW ON CLEAR DIET.
--- NOTE | 2022-02-18 13:12 | NUR ---
PT AMBULATED IN THE [place] WITH NURSING STAFF. PT STEADY AND BALANCED. C/O MILD ABDOMINAL PAIN WITH WALKING. BILATERAL LOWER QUADRANTS HAVE ACTIVE BOWEL SOUNDS. INCISION SITE IS WELL APPROXIMATED WITHOUT DRAINAGE. HAS BEEN UP TO VOID X 1 SINCE CATHETER REMOVAL. NO BM BUT IS PASSING FLATULANCE.
--- NOTE | 2022-02-18 14:12 | NUR ---
PATIENT IN BED, VITALS AND I/O'S COMPLETED. NO OTHER NEEDS AT THIS TIME. CALL LIGHT WITHIN REACH.
--- NOTE | 2022-02-18 15:00 | NUR ---
PT SITTING AT EOB. IV FLUIDS RUNNING. PT STATES SHE IS FEELING VERY HUNGRY. GIVEN BROTH AND JELLO. PT UP TO VOID. CALL LIGHT WITHIN REACH.
--- NOTE | 2022-02-18 16:44 | NUR ---
PT AMBULATED IN YOUNG. DID FOUR LAPS ON UNIT. STEADY GAIT AND BALANCE.
--- NOTE | 2022-02-18 17:53 | NUR ---
TO PT ROOM TO CHECK ON PT. PT DENIES NEED FOR PAIN MEDICATION ATT. PT IS A/O, CALL LIGHT WITHIN REACH.
--- NOTE | 2022-02-18 18:05 | NUR ---
PATIENT IN BED RESTING, AND VISITING WITH FAMILY. VITALS AND I/O'S COMPLETED. NO OTHER NEEDS AT THIS TIME. CALL LIGHT WITHIN REACH.
--- NOTE | 2022-02-18 19:40 | NUR ---
RECEIVED REPORT FROM DAY SHIFT RN. PATIENT ASSISTED TO THE BR A SBA. PATIENT ABLE TO VOID. PATIENT BACK RESTING ON EDGE OF BED. PATIENT IS REQUESTING A CHEESEBURGER. EDUCATED PATIENT ON DIET. PATIENT STATED "HOW AM I SUPPOSED TO SHIT IF I DONT EAT". EDUCATED PATIENT ON PLAN OF CARE AND DIET. PATIENT STATED "I WILL NOT STAY HERE UNTIL I SHIT, I AM LEAVING [place]". EDUCATED PATIENT THAT MD WILL ROUND IN AM AND THEY CAN DISCUSS DISCHARGE THEN. PATIENT PROVIDED DIET PEPSI, JELLO AND BELARUSIAN ICE. PATIENT STATED "THIS IS RIDICULOUS I AM STARVING". PROVIDED SUPPORT TO PATIENT AND REINFORCED DIET ORDER. PATIENT DENIES ANY PAIN OR NAUSEA. NO FURTHER NEEDS NOTED. CALL LIGHT IN REACH.
--- NOTE | 2022-02-18 21:41 | NUR ---
PATIEBT ASSESMENT COMPLETED. PATIENTS VITALS TAKEN AND RECORDED. INTAKE AND OUTPUT RECORDED. PM MEDS GIVEN PER ORDER. PATIENT REPORTS 3/10 ABD PAIN, PRN PAIN MEDICATION GIVEN PER ORDER. ICE PACK PROVIDED FOR PATIENTS ABD. PATIENT DENIES ANY NAUSEA. PATIENTS IV INFUSING PER ORDER. PATIENTS MID ABD INCISION IS C/D/I, MARY ANNE PRESENT, WELL APPROX, NO DRAINAGE NOTED, AND NO S/SX OF INFECTION NOTED. ACTIVE BOWEL TONES. PATIENT IS PASSING GAS. FRESH ICE WATER PROVIDED. NO FURTHER NEEDS NOTED. CALL LIGHT IN REACH.
--- NOTE | 2022-02-18 22:46 | NUR ---
IV ALARMING. IV INFUSING PER ORDER. PATIENT DENIES ANY PAIN OR NAUSEA NO FURTHER NEEDS NOTED. CALL LIGHT IN REACH.
--- NOTE | 2022-02-18 23:16 | NUR ---
PATIENT ASSISTED TO THE BR A SBA. PATIENT ABLE TO VOID. PATIENT IS BACK IN BED RESTING. PATIENT DENIES ANY PAIN OR NASUEA. IV INFUSING PER ORDER. NO FURTHER NEEDS NOTED. CALL LIGHT IN REACH.
--- NOTE | 2022-02-18 23:33 | NUR ---
PATIENT ASSISTED TO REPOSITION IN BED. PATIENT DENIES ANY PAIN OR NAUSEA. FRESH ICE WATER PROVIDED. NO FURTHER NEEDS NOTED. CALL LIGHT IN REACH.
--- NOTE | 2022-02-19 02:37 | NUR ---
PATIENT IS RESTING IN BED WITH EYES CLOSED, RR 17. CALL LIGHT IN REACH.
--- NOTE | 2022-02-19 05:39 | NUR ---
PATIENT UP TP BR AND ABLE TO VOID. PATIENT IS BACK IN BED RESTING. VITALS TAKEN AND RECORDED. INTAKE AND OUTPUT RECORDED. PATIENT RATES PAIN AT A 2/10, ICE PACK PROVIDED AND Pt DENIES THE NEED FOR PRN MEDS AT THIS TIME. PATIENT DENIES ANY NAUSEA. PATIENTS MID ABD INCISION IS C/D/I, MARY ANNE PRESENT, WELL APPROX, AND NO S/SX OF INFECTION NOTED. ACTIVE BOWEL TONES NOTED IN ALL 4 QUADRANTS. FRESH ICE WATER PROVIDED. NO FURTHER NEEDS NOTED. CALL LIGHT IN REACH.
--- NOTE | 2022-02-19 06:37 | NUR ---
PATIENT UP TO BR A SBA. PATIENT ABLE TO VOID. PATIENT IS BACK IN BED RESTING. PATIENT DENIES ANY PAIN OR NAUSEA. NO FURTHER NEEDS NOTED. CALL LIGHT IN REACH.
--- NOTE | 2022-02-19 07:10 | EKG ---
[facility] [address] [facility] [place], [place] [address] Signed Normal sinus rhythm Normal ECG When compared with ECG of 25-JUL-2021 12:17, QT has lengthened Confirmed by CARLO CONLEY MD ([id number]) on 02/19/2022 7:09:58 AM Electronically Signed By: CARLO CONLEY MD 02/19/22 0710 PATIENT NAME: LAYNE DIAZ Electrocardiogram DATE OF : 60 PHYSICIAN: CARLO CONLEY MD REPORT #: [id number] REPORT IS CONFIDENTIAL AND NOT TO BE RELEASED WITHOUT AUTHORIZATION
--- NOTE | 2022-02-19 07:41 | NUR ---
RECEIVED REPORT ON PT. PT A/O, SITTING UP IN BED. IV FLUIDS RUNNING. PT HAD GOOD URINE OUTPUT OVERNIGHT. CALL LIGHT WITHIN REACH.
[2022-02-19] MEDS ORDERED: HYDROCODON-ACE1 EAC8 PO (09:06)
--- NOTE | 2022-02-19 09:45 | NUR ---
PT DISCHARGED. A/O, AMBULATING WELL. HAD BOWEL MOVEMENT JUST PRIOR TO DISCHARGE. VOIDING WELL. IV REMOVED, CATHETER INTACT. TRANSPORTED IN WHEELCHAIR WITH NURSING STAFF TO [facility].
--- NOTE | 2022-02-20 20:10 | DS ---
[facility] [address] [place], [place] [address] Signed ADMISSION DATE: 02/17/2022 DISCHARGE DATE: 02/19/2022 FINAL DIAGNOSIS: Recurrent supraumbilical incisional hernia (3 cm). PROCEDURE: Primary repair of recurrent supraumbilical incarcerated incisional hernia without mesh. 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 She continues to lift large devi of hay, weighing anywhere from 65 to 100 pounds. She also has large round devi that she uses with her tractor. She had a sigmoid resection years ago through a periumbilical midline incision with Dr. Romero. Last summer, she came for a laparoscopic cholecystectomy with Dr. Romero. At that time, he primarily repaired a periumbilical incisional hernia with Prolene suture. Overall, Andrei has done well. However, she has noticed for some time according to her sister that she has a recurrent supraumbilical incisional hernia. A couple of days ago, she felt like the intestine was stuck in that area. She finally came to the emergency room for evaluation. In the emergency room, she was having nausea and vomiting. White count was normal. CT scan showed the 26 mm hernia. There was a piece of small bowel representing a Oscar's hernia. I had been asked to admit her as a general surgeon on-call. HOSPITAL COURSE: Andrei was admitted as above and started on her Levaquin and Flagyl. We were not successful in passing the NG tube. However, Andrei was not particularly interested in the NG tube. She did vomit in the morning and I think she emptied her stomach in that regard. It was difficult to appreciate the hernia because of her body habitus. I explained to Andrei I thought it was imperative we take her to the OR. We took her that same day and we were able to lyse a few adhesions and move the small bowel away from her hernia. We closed that hernia defect transversely with interrupted #1 Prolene [id number] sutures. We kept her in the hospital after the surgery as well as yesterday. She has been on a clear liquid diet and IV fluids. She is now passing flatus. She has had no nausea or vomiting. Abdominal exam is completely benign. She has had frequent headaches, which is usual for her. She said the Toradol seems to work well in that regard. She also told me that she has taken hydrocodone in the past for surgical pain. At this point, we are going to be discharging her to home. She told me she already has family and friends taking care of the horses. DISCHARGE PLANS AND MEDICATIONS: Andrei is going to be discharged to home with a prescription for [place] 10/325 one tablet Electronically Signed By: RENNY VILLA MD 02/20/222009 PATIENT NAME: ANDREI DIAZ DISCHARGE SUMMARY DATE OF : 60 REPORT #: [id number] PHYSICIAN: RENNY VILLA MD PCP: MIGDALIA SINGH MD REPORT IS CONFIDENTIAL AND NOT TO BE RELEASED WITHOUT AUTHORIZATION [address] [address] Signed p.o. q.6 hours p.r.n. for pain. We will dispense 30 tablets with no refills. She will resume her chronic medications at home. She is going to advance her diet slowly. She knows to cut back on the diabetic medications when her diet has been cut back. We will leave the incision open to air and kevon in place. She will shower and bathe as usual. She is not to do any heavy pushing, pulling, or lifting over about 20 pounds for a couple of months until this heals. 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 Her frequent heavy lifting puts her at increased risk for recurrent incisional hernia along with her diabetes and obesity. I will see her back in my office in about 7 to 10 days for followup. She has expressed understanding and agrees with the above plan. Renny Villa MD ALB/MODL /[id number] cc: MD Renny Suh MD Copies: MIGDALIA SINGH MD, ANDREW L MD ~ Electronically Signed By: RENNY VILLA MD 02/20/222009 PATIENT NAME: ANDREI DIAZ DISCHARGE SUMMARY DATE OF : 60 REPORT #: [id number] PHYSICIAN: RENNY VILLA MD PCP: MIGDALIA SINGH MD REPORT IS CONFIDENTIAL AND NOT TO BE RELEASED WITHOUT AUTHORIZATION
== END 2022-02-19 09:45 | disposition home or self-care (01) | DRG 355 ==
LOC: ED 01:44 → MS 01:45
PROVIDERS: ADMIT Colon & Rectal Surgery; ATTEND Colon & Rectal Surgery
PROC: 3E0T3BZ Introduction of Anesthetic Agent into Peripheral Nerves and Plexi, Percutaneous Approach (ICD-10-PCS; 2022-02-17)
PROC: 0WQF0ZZ Repair Abdominal Wall, Open Approach (ICD-10-PCS; principal; 2022-02-17 14:30)
DX: K42.0 Umbilical hernia with obstruction, without gangrene (principal); E66.9 Obesity, unspecified; E11.9 Type 2 diabetes mellitus without complications; E03.9 Hypothyroidism, unspecified; J45.909 Unspecified asthma, uncomplicated; Z20.822 Contact with and (suspected) exposure to COVID-19; G89.29 Other chronic pain; Z90.710 Acquired absence of both cervix and uterus; Z88.8 Allergy status to other drugs, medicaments and biological substances; Z88.0 Allergy status to penicillin; Z88.1 Allergy status to other antibiotic agents; Z90.49 Acquired absence of other specified parts of digestive tract; Z88.5 Allergy status to narcotic agent; Z79.4 Long term (current) use of insulin; Z79.899 Other long term (current) drug therapy; Z68.33 Body mass index [BMI] 33.0-33.9, adult
CPT/HCPCS: 00752; 36415; 71045; 74177; 76942; 80048; 80053; 81001; 83690; 83735; 84100; 85025; 87502; 96375; 96376; 99285-25; C9113; C9803; J0131; J1100; J1170; J1200; J1650; J1815; J1885; J1956; J2001; J2405; J2550; J2704; J2795; J3480; J7030; J7121; Q9967; U0003

== ENCOUNTER 2022-07-31 12:29 | Emergency (ER) | payer BC, OTHER ==
[~2022-07-31] VITALS: Ht 157.5 cm; Wt 83.0 kg
[~2022-07-31 12:29] MED LIST changes: +CLARITIN10 MG PO; +DICLOFENAC SOD100 G1 TOP; +ETODOLAC400 MG PO; +GLIPIZIDE XL10 MG PO; +HYDROCODON-ACE1 EAC8 PO; +LANTUS SOL100 UNIT/1 SUB-Q; +LOMAIRA8 MG; +MECLIZINE HCL25 MG PO; +PROAIR HFA8.5 GM INH; +TRULICITY3 MG/0.5 M SQ; +VITAMIN B-121000 MCG PO; +VITAMIN E400 UNI1 PO
--- OUTSIDE RECORDS SUMMARY | 2022-07-31 12:30 | XMS ---
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 PROVIDERS [facility] 04/11/2021-[facility] PHONE: [phone] [place] has no Care Guidelines for this patient. Care History Medical/Surgical 04/11/2021 [facility] - PATIENT IS [facility] ELIGIBLE, \T\middot;\T\nbsp; PLEASE REFER PATIENT TO [facility] FOR NON EMERGENT MEDICAL NEEDS. \T\middot;\T\nbsp; [facility] CAN SEE PATIENTS SAME DAY FOR APTS IF PATIENT CALLS FIRST THING IN THE MORNING. E.D. VISIT COUNT (12 MO.) 2 [facility] TOTAL 2 NOTE: Visits indicate total known visits. ED/UCC VISIT TRACKING (12 MO.) 07/31/2022 12:29 [facility] TYPE: Emergency COMPLAINT: - CHEST PAIN 02/17/2022 01:44 [facility] TYPE: Emergency COMPLAINT: - ABD PAIN INPATIENT VISIT TRACKING (12 MO.) 02/17/2022 09:[address] [facility] TYPE: Medical Surgical COMPLAINT: - INCARCERATED VENTRAL HERNIA DIAGNOSES: - Allergy status to penicillin - Allergy status to penicillin - terminal superintendent (current) use of insulin - Umbilical hernia with obstruction, without gangrene - Body mass index [BMI] 33.0-33.9, adult - Allergy status to other antibiotic agents - Unspecified asthma, uncomplicated - Other alf (current) drug therapy - Acquired absence of other specified parts of digestive tract - Other chronic pain - Other terminal superintendent (current) drug therapy - Allergy status to narcotic agent - FDC (current) use of insulin - Allergy status to narcotic agent - Umbilical hernia with obstruction, without gangrene - Unspecified abdominal pain - Allergy status to other drugs, medicaments and biological substances - Hypothyroidism, unspecified - Other chronic pain - Obesity, unspecified - Acquired absence of both cervix and uterus - Hypothyroidism, unspecified - Type 2 diabetes mellitus without complications - Contact with and (suspected) exposure to COVID-19 - Type 2 diabetes mellitus without complications - Unspecified asthma, uncomplicated - Allergy status to other antibiotic agents - Obesity, unspecified - Acquired absence of both cervix and uterus - Allergy status to other drugs, medicaments and biological substances - Body mass index [BMI] 33.0-33.9, adult - Contact with and (suspected) exposure to COVID-19 - Acquired absence of other specified parts of digestive tract [email or web address]
[2022-07-31] MEDS ORDERED: ALLEGRA ALLERG180 MG PO (13:05)
[2022-07-31] MEDS ORDERED: LISINOPRIL2.5 MG PO (13:07)
[2022-07-31] MEDS ORDERED: LANSOPRAZOLE30 MG PO (13:08)
[2022-07-31] MEDS ORDERED: ATORVASTATIN CA10 MG PO (13:10)
--- NOTE | 2022-08-01 22:06 | EKG ---
[facility] [address] [facility] [place], [place] [address] Signed Normal sinus rhythm Normal ECG No previous ECGs available Confirmed by CARLO CONLEY MD ([id number]) on 08/01/2022 10:06:27 PM Electronically Signed By: CARLO CONLEY MD 08/01/222205 PATIENT NAME: LAYNE DIAZ Electrocardiogram DATE OF : 60 PHYSICIAN: CARLO CONLEY MD REPORT #: [id number] REPORT IS CONFIDENTIAL AND NOT TO BE RELEASED WITHOUT AUTHORIZATION
== END 2022-07-31 15:50 | disposition home or self-care (01) ==
LOC: ED 12:29
DX: R07.89 Other chest pain (principal); E11.9 Type 2 diabetes mellitus without complications; E03.9 Hypothyroidism, unspecified; J45.909 Unspecified asthma, uncomplicated; Z88.1 Allergy status to other antibiotic agents; Z88.0 Allergy status to penicillin; Z88.8 Allergy status to other drugs, medicaments and biological substances; Z91.018 Allergy to other foods; Z88.5 Allergy status to narcotic agent; Z88.6 Allergy status to analgesic agent; Z79.899 Other long term (current) drug therapy; Z79.4 Long term (current) use of insulin
CPT/HCPCS: 36415; 71045; 71260; 80053; 84484; 85025; 85379; 93005; 93010; 99285-25; Q9967

== ENCOUNTER 2024-09-16 10:39 | Day surgery (SDC) | payer BC, OTHER ==
[~2024-09-16] VITALS: Ht 157.5 cm; Wt 87.7 kg
[~2024-09-16 10:39] MED LIST changes: +ALLEGRA ALLERG180 MG PO; +AMITRIPTYLINE H10 MG PO; +ATORVASTATIN CA10 MG PO; +BUDESONIDE-FO10.2 G1 INH; +CONSTULOSE10 GM/15 M; +DICYCLOMINE HCL10 MG PO; +HUMALOG100 UNIT/2; +HUMULIN 70100 UNIT/3 SUB-Q; +HYDROCODON-ACE1 EA10 PO; +IBLOOD GLUCOSE TEST STRIP 1 EA TEST VI PRN; +KETOROLAC TROME10 MG PO; +LACTATED RINGER'S 1,000 ML IV SCH; +LANSOPRAZOLE30 MG PO; +LIDOCAINE HCL 1% 5 ML SDV INJ ONE; +LIDOCAINE HCL 4% 50 ML BTL TOP SCH; +LOSARTAN POTAS100 MG PO; +LOSARTAN POTASS25 MG PO; +LYRICA75 MG PO; +MIDAZOLAM HCL 5 MG/5 ML VIAL IV PRN; +MOUNJARO7.5 MG/0.5; +ONDANSETRON HCL4 MG PO; +VITAMIN B-1250 MCG PO; +VITAMIN D310 MC1 PO; +fentaNYL citrate 100 MCG/2 ML VIAL IV PRN
[2024-09-16 11:18] VITALS: BP 146/55
[2024-09-16] MEDS ORDERED: MIDAZOLAM HCL 5 MG/5 ML VIAL ONE (11:41)
[2024-09-16] MEDS ORDERED: fentaNYL citrate 100 MCG/2 ML VIAL ONE (11:41)
--- NOTE | 2024-09-16 12:27 | NUR ---
09/16/24 1227 Sheets,Becki 1219 PT ARRIVED TO PACU ON 3L VIA NC, PT WAKES EASILY AND EASILY FALLS BACK TO SLEEP. RESP EVEN AND UNLABORED. VSS.
[2024-09-16 13:29] VITALS: BP 108/82
--- NOTE | 2024-09-18 14:09 | PATH ---
[facility] [address] [place] [place], [place] [address] Signed SPECIMEN(S): A DUODENAL BIOPSY SPECIMEN(S): B ANTRUM BIOPSY SPECIMEN(S): C GASTRIC POLYP SPECIMEN(S): D GE JUNCTION BIOPSY SPECIMEN(S): E MIDDLE ESOPHAGUS BIOPSY SPECIMEN SOURCE: A. DUODENAL BIOPSY B. ANTRUM BIOPSY C. GASTRIC POLYP D. GE JUNCTION BIOPSY E. MIDDLE ESOPHAGUS BIOPSY CLINICAL HISTORY: History of abdominal bloating, GERD. Post: Anterior gastritis FINAL PATHOLOGIC DIAGNOSIS: A. Duodenum, biopsy: - Duodenal mucosa with no significant pathologic changes B. Stomach, antrum, biopsy: - Gastric antral mucosa with reactive gastropathy - Negative for Helicobacter pylori with HE stains C. Stomach, polypectomy: - Fundic gland polyp D. Gastroesophageal junction, biopsy: - Esophageal squamous and gastric oxyntic type mucosa with no significant pathologic changes; negative for intestinal metaplasia E. Esophagus, middle, biopsy: - Esophageal squamous mucosa with active Maryse associated esophagitis BRP MICROSCOPIC EXAMINATION: Histologic sections of all submitted blocks are examined by light microscopy. These findings, together with the gross examination, support the pathologic diagnosis. GROSS DESCRIPTION: A. The specimen, labeled and designated "Dwayne Diaz, duodenal biopsy," is received in formalin and consists of one li soft tissue fragment, 0.4 cm. Entirely submitted in (A1). B. The specimen, labeled and designated "Dwayne Diaz, antral biopsy," is PATIENT NAME: LAYNE DIAZ PATHOLOGY DATE OF : 60 REPORT #: [id number] PHYSICIAN: KENNETH DAHL PCP: MIGDALIA SINGH MD REPORT IS CONFIDENTIAL AND NOT TO BE RELEASED WITHOUT AUTHORIZATION [facility] [address] [place] [place], [place] [address] Signed received in formalin and consists of two li soft tissue fragments, ranging from 0.4-0.5 cm. Entirely submitted in (B1). C. The specimen, labeled and designated "Minthorn, T, gastric polyp," is received in formalin and consists of one li soft tissue fragment, 0.4 cm. Entirely submitted in (C1). D. The specimen, labeled and designated "Minthorn, T, GE junction biopsy," is received in formalin and consists of five li soft tissue fragments, ranging from 0.1-0.6 cm. Entirely submitted in (D1). E. The specimen, labeled and designated "Minthorn, T, middle esophagus biopsy," is received in formalin and consists of four li soft tissue fragments, ranging from 0.1-0.7 cm. Entirely submitted in (E1). AB (under the direct supervision of a pathologist) The Gross Description was prepared using a voice recognition system. The report was reviewed for accuracy; however, sound-alike word errors, addition and/or deletions may occur. If there is any question about this report, please contact Client Services. ADDITIONAL NOTES: Immunohistochemical and/or in situ hybridization studies if performed in this case included appropriate positive controls that reacted as expected. This test was developed and its performance characteristics determined by [facility]. It has not been cleared or approved by the U.S. Food and Drug Administration. The FDA has determined that such clearance or approval is not necessary. This test is used for clinical purposes. It should not be regarded as investigational or for research. [facility] is certified under the Clinical Laboratory Improvement Amendments of 1988 (CLIA) as qualified to perform high complexity clinical laboratory testing. PERFORMING LABORATORY: Technical component was performed by [facility], [address] [place] [id number] (CLIA# [id number]). Professional interpretation was performed by [facility] - [facility], [address] [place] [id number] (CLIA#: [id number]). Diagnostician: Michael Veliz MD Pathologist Electronically Signed 09/18/2024 PATIENT NAME: LAYNE DIAZ PATHOLOGY DATE OF : 60 REPORT #: [id number] PHYSICIAN: KENNETH PATHOLOGY PCP: MIGDALIA SINGH MD REPORT IS CONFIDENTIAL AND NOT TO BE RELEASED WITHOUT AUTHORIZATION [address] [place] [address] Signed Copies: ~ PATIENT NAME: LAYNE DIAZ PATHOLOGY DATE OF : 60 REPORT #: [id number] PHYSICIAN: KENNETH DAHL PCP: MIGDALIA SINGH MD REPORT IS CONFIDENTIAL AND NOT TO BE RELEASED WITHOUT AUTHORIZATION
--- NOTE | 2024-09-21 07:47 | OR ---
[facility] [address] [place], [place] [address] Signed DATE OF OPERATION: 09/16/2024 SURGEON: Mahnaz Carlton MD PREOPERATIVE DIAGNOSIS: Generalized abdominal bloating and epigastric pain; recent discontinuance of Wegovy. POSTOPERATIVE DIAGNOSIS: Antral gastritis without ulceration. PROCEDURE: Esophagogastroduodenoscopy with biopsy. ANESTHESIA: Intravenous sedation, fentanyl 100 mcg and Versed 5 mg. INDICATION: This 64-year-old woman is a patient of Dr. Ryan and more recently Dr. Souza at [facility]. She has had complaints of upper abdominal pain and epigastric pain as well as "bad reflux." By this she means regurgitation as well as vomiting and burning epigastric pain. She feels that there is nothing "moving through" her digestive tract. A plain abdominal x-ray showed a fair amount of stool burden. She has been on Mounjaro for the past three months. Quite notably, she was on Ozempic a few years ago which she had similar symptoms and was completely not tolerant of it. A GI cocktail was prescribed by Dr. Souza at [facility], which was beneficial to her. She is now taking a PPI medication. It is my impression she most likely has adverse side effects including probable dysmotility or gastroparesis related to the Wegovy. I have advised her to discontinue it entirely. She is admitted at this time to undergo upper endoscopy to better characterize her symptoms specific to assess for peptic ulcer as she has been on etodolac, nonsteroidal for arthritic problems. She is advised to stop all NSAIDs at this time as well. She understands the risk of upper endoscopy including, but not limited to bleeding, infection, and perforation and wishes to proceed. FINDINGS: Esophagus and duodenum appeared normal. Stomach did have antral gastritis. The flap valve was good. CLOtest was negative. There were no actual ulcerations, though she had antral gastritis. DESCRIPTION OF PROCEDURE: The patient was brought to the endoscopy suite and placed in lateral decubitus position Electronically Signed By: MAHNAZ CARLTON MD 09/21/24 0747 PATIENT NAME: LAYNE DIAZ OPERATIVE REPORT DATE OF : 60 REPORT #: [id number] PHYSICIAN: MAHNAZ CARLTON MD PCP: MIGDALIA RYAN MD REPORT IS CONFIDENTIAL AND NOT TO BE RELEASED WITHOUT AUTHORIZATION [facility] [address] [place] [id number] Signed after undergoing lidocaine hypopharyngeal anesthesia. She was given intravenous sedation to the point of slurred speech and nystagmus with full cardiopulmonary monitoring. A bite block was placed. An Olympus video upper endoscope was passed into the hypopharynx. The vocal cords were normal. Esophagus throughout its length was entirely normal. Scope was passed in the stomach which was insufflated with air. There was some amount of bilious fluid within it, but not much and some semi-solid material, but again not much. Certainly, one would have expected this to have cleared and therefore she may have an underlying gastric atony to some degree. Stomach was not massively dilated. The pylorus was normal. Scope was passed through into the duodenum. The duodenum was normal. Biopsies were obtained. The scope was withdrawn and biopsies then taken of the antrum. She had a few gastric polyps, likely related to PPI use. One artist representative polyp was excised. Retroflexed view was undertaken showing a normal flap valve and persistent findings of mild gastritis more proximally. The scope was withdrawn to the distal esophagus where biopsies were obtained though it appeared normal and the midesophagus as well. The scope was removed. The patient was taken to the recovery room in good condition. CONCLUDING DIAGNOSIS: Antral gastritis, mild without sign of gastric outlet obstruction. There is no evidence of hiatal hernia and no sign of esophagitis. I think it is highly probable that the adverse effects of gastric dysmotility related to her Wegovy may be the ultimate cause of her symptoms. I am recommending she continue to avoid Wegovy at this time. Continue her PPI medication. We will add Carafate 1 g p.o. q.i.d. We will see her back in the office in 4-6 weeks and assess her progress. MD BOBBY Stephens/HERNANDEZL /[id number] cc: MD Zach Suh MD Copies: MIGDALIA RYAN MD Electronically Signed By: MAHNAZ CARLTON MD 09/21/24 0747 PATIENT NAME: LAYNE DIAZ OPERATIVE REPORT DATE OF : 60 REPORT #: [id number] PHYSICIAN: MAHNAZ CARLTON MD PCP: MIGDALIA RYAN MD REPORT IS CONFIDENTIAL AND NOT TO BE RELEASED WITHOUT AUTHORIZATION [address] [address] Signed ZACH SOUZA MD ~ Electronically Signed By: MAHNAZ CARLTON MD 09/21/24 0747 PATIENT NAME: LAYNE DIAZ OPERATIVE REPORT DATE OF : 60 REPORT #: [id number] PHYSICIAN: MAHNAZ CARLTON MD PCP: MIGDALIA RYAN MD REPORT IS CONFIDENTIAL AND NOT TO BE RELEASED WITHOUT AUTHORIZATION
== END 2024-09-16 13:38 | disposition home or self-care (01) ==
LOC: DS 10:39
PROVIDERS: ATTEND Surgery
PROC: 0DB68ZX Excision of Stomach, Via Natural or Artificial Opening Endoscopic, Diagnostic (ICD-10-PCS; 2024-09-16)
PROC: 0DB98ZX Excision of Duodenum, Via Natural or Artificial Opening Endoscopic, Diagnostic (ICD-10-PCS; principal; 2024-09-16 11:45)
DX: K21.00 Gastro-esophageal reflux disease with esophagitis, without bleeding (principal); B37.81 Candidal esophagitis; K29.70 Gastritis, unspecified, without bleeding; K31.7 Polyp of stomach and duodenum; E03.9 Hypothyroidism, unspecified; J45.909 Unspecified asthma, uncomplicated; E11.9 Type 2 diabetes mellitus without complications; Z90.711 Acquired absence of uterus with remaining cervical stump; Z88.1 Allergy status to other antibiotic agents; Z88.5 Allergy status to narcotic agent; Z88.0 Allergy status to penicillin; Z88.6 Allergy status to analgesic agent; Z88.8 Allergy status to other drugs, medicaments and biological substances; Z79.890 Hormone replacement therapy; Z79.4 Long term (current) use of insulin; Z79.899 Other long term (current) drug therapy
CPT/HCPCS: 99153; G0500; J2250; J3010; J7121